=== PATIENT | female | born 1975 | race Caucasian/White ===

== ENCOUNTER → 2018-01-20 | Outpatient (CLI) | payer OTHER ==
[~2018-01-20] MED LIST: METOPROLOL TAR100 MG
== END | disposition home or self-care (01) ==
LOC: RAD 12:50
DX: Z01.818 Encounter for other preprocedural examination (principal); R19.00 Intra-abdominal and pelvic swelling, mass and lump, unspecified site; D64.89 Other specified anemias; N39.0 Urinary tract infection, site not specified; R79.89 Other specified abnormal findings of blood chemistry; I10 Essential (primary) hypertension

== ENCOUNTER 2018-01-27 13:50 | Inpatient (IN) | payer OTHER ==
[~2018-01-27] VITALS: Ht 154.9 cm; Wt 74.8 kg
[2018-01-27] MEDS ORDERED: METOPROLOL TAR100 MG (14:25)
[2018-01-31] MEDS ORDERED: TANDEM PLUS CA1 EACH PO (13:03)
[2018-01-31] MEDS ORDERED: NAPROXEN375 MG PO (13:03)
[2018-01-31] MEDS ORDERED: ULTRACET PO (13:03)
[2018-01-31] MEDS ORDERED: COLACE100 MG PO (13:04)
== END 2018-01-31 13:26 | disposition home or self-care (01) | DRG 743 ==
LOC: O/R 01-29 05:30 → SURH 01-29 14:15 → SURG 01-29 19:27
PROVIDERS: Obstetrics & Gynecology Gynecologic Oncology
PROC: 0UT20ZZ Resection of Bilateral Ovaries, Open Approach (ICD-10-PCS; 2018-01-29)
PROC: 07BC0ZX Excision of Pelvis Lymphatic, Open Approach, Diagnostic (ICD-10-PCS; 2018-01-29)
PROC: 0UT70ZZ Resection of Bilateral Fallopian Tubes, Open Approach (ICD-10-PCS; 2018-01-29)
PROC: 0DNN0ZZ Release Sigmoid Colon, Open Approach (ICD-10-PCS; 2018-01-29)
PROC: 0UB40ZZ Excision of Uterine Supporting Structure, Open Approach (ICD-10-PCS; 2018-01-29)
PROC: 0UT90ZZ Resection of Uterus, Open Approach (ICD-10-PCS; principal; 2018-01-29 16:30)
DX: N80.0 Endometriosis of uterus (principal); N73.6 Female pelvic peritoneal adhesions (postinfective)